=== PATIENT | male | born 1955 | race Caucasian/White ===

== ENCOUNTER 2024-02-28 10:30 | Emergency (ER) | payer OTHER ==
[~2024-02-28] VITALS: Ht 162.6 cm; Wt 67.3 kg
[2024-02-28 10:43] VITALS: TEMP 98.6
[2024-02-28] MEDS ORDERED: AMLO-258 PO (10:45)
[2024-02-28 10:51] LABS: GLUCOMETER DEV NAME(LOC) ER.6; GLUCOSE,POINT OF CARE 113 MG/DL (70-110)
[2024-02-28] MEDS: PROPARACAINE HCL 0.5% 15 ML OPHTHALMIC SOLUTION OD ONE (10:57)
[2024-02-28] MEDS: FLUORESCEIN SODIUM 1 MG STRIP OD ONE (10:57)
[2024-02-28 12:00] VITALS: BP 142/84; PULSE 77; RESP 18
== END 2024-02-28 12:10 | disposition home or self-care (01) ==
LOC: EMS 10:31 → EDBD 10:31 → EMS 12:10
DX: H53.9 Unspecified visual disturbance (principal); E11.9 Type 2 diabetes mellitus without complications; I10 Essential (primary) hypertension
CPT/HCPCS: 82962; 99283